=== PATIENT | female | born 1975 | race Caucasian/White ===

== ENCOUNTER 2018-01-10 08:11 | Outpatient (CLI) | payer OTHER ==
--- NOTE | 2018-01-10 12:25 | MRI ---
MRI LUMBAR SPINE NONCONTRAST: History: Low back pain. Bilateral leg radiculopathy. FINDINGS: Conus medullaris has a normal appearance. Vertebral body heights and alignment are maintained. Bone m arrow signal within normal limits. T12-L1, L1-2, L2-3, L3-4: Mild osteophytosis. Central canal and neural foraminal are patent. L4-5: Mild disc bulge. Desiccation of the disc. Congenitially small central spinal canal. Osteophytos is of the facets with significant fluid in each facet. Degenerative changes result in moderate stenos is of the central canal and each neural foramen. L5-S1: Mild osteophytosis. Central canal is patent. Osteophytosis results in moderate stenosis of the left neural foramen. IMPRESSION: Degenerative changes lower lumbar spine as detailed above, including significant central canal and fo raminal stenoses at the L4-5 level. Significant fluid within the facets at the L4-5 level raise quest ion of facet instability. POS: THOM
== END 2018-01-10 08:12 | disposition home or self-care (01) ==
LOC: SCSMRI 08:11
PROVIDERS: ATTEND Physician Assistant Surgical
DX: M54.5 Low back pain (principal); M48.061 Spinal stenosis, lumbar region without neurogenic claudication; M99.83 Other biomechanical lesions of lumbar region; M47.896 Other spondylosis, lumbar region
CPT/HCPCS: 72148

== ENCOUNTER 2018-08-16 14:44 | Outpatient (CLI) | payer OTHER ==
--- NOTE | 2018-08-16 15:35 | MMO ---
Bilateral MAMMO Bilat Screen [facility]. CLINICAL HISTORY: Patient is 42 years old and is seen for screening. The patient has no family history of breast cancer. The patient has no personal history of cancer. VIEWS: The views performed were: bilateral craniocaudal and bilateral mediolateral oblique. FILMS COMPARED: The present examination has been compared to prior imaging studies performed at [facility] on 02/19/2016, and at [facility] on 04/29/2010. This study has been interpreted with the assistance of computer-aided detection. MAMMOGRAM FINDINGS: The breasts are almost entirely fat. There are stable benign appearing calcifications seen in both breasts. There are no suspicious masses, suspicious calcifications, or new areas of architectural distortion. IMPRESSION: THERE IS NO MAMMOGRAPHIC EVIDENCE OF MALIGNANCY. A ROUTINE FOLLOW-UP MAMMOGRAM IN 1 YEAR IS RECOMMENDED. ACR BI-RADS Category 2 - Benign finding MAMMOGRAPHY NOTE: 1. A negative mammogram report should not delay a biopsy if a dominant of clinically suspicious mass is present. 2. Approximately 10% to 15% of breast cancers are not detected by mammography. 3. Adenosis and dense breasts may obscure an underlying neoplasm.
== END 2018-08-16 14:45 | disposition home or self-care (01) ==
LOC: SCSMAMMO 14:44
PROVIDERS: ATTEND Family Medicine
DX: Z12.31 Encounter for screening mammogram for malignant neoplasm of breast (principal)
CPT/HCPCS: 77067

== ENCOUNTER 2020-10-08 12:25 | Outpatient (CLI) | payer OTHER | END 2020-10-08 12:26 | disposition home or self-care (01) | LOC: BICMAMMO 12:25 | PROVIDERS: ATTEND Family Medicine | DX: Z12.31 Encounter for screening mammogram for malignant neoplasm of breast (principal); Z85.828 Personal history of other malignant neoplasm of skin | CPT/HCPCS: 77063; 77067 ==

== ENCOUNTER 2021-06-08 10:23 | Outpatient (CLI) | payer BC | END 2021-06-08 10:24 | disposition home or self-care (01) | LOC: MRI 10:23 | PROVIDERS: ATTEND Specialist | DX: M48.062 Spinal stenosis, lumbar region with neurogenic claudication (principal); M51.16 Intervertebral disc disorders with radiculopathy, lumbar region; M43.16 Spondylolisthesis, lumbar region | CPT/HCPCS: 72148 ==